=== PATIENT | female | born 1980 | race American Indian/Alaskan Native ===

== ENCOUNTER 2016-08-22 22:45 | Inpatient (IN) | payer SELFPAY ==
[2016-08-23] MEDS ORDERED: NORCO 5/325 ONE (03:04)
[2016-08-23] MEDS ORDERED: NORCO 5/325 PO ONE (03:13)
[2016-08-23] MEDS ORDERED: CLEOCIN 600 MG/50 mL 600 MG/50 ML BAG IV ONE (04:51)
--- NOTE | 2016-08-23 05:04 | Emergency Department Report ---
ED Extremity Problem HPI - General Chief complaint: Extremity Problem,Nontraumatic Stated complaint: R THUMB SWOLLEN Source: patient Mode of arrival: Ambulatory Limitations: No Limitations - History of Present Illness Initial comments: 36-year-old female comes in today for complaint of nontraumatic swelling and warmth to her right thumb. She reports that this is been going on for 1 week. 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 She denies any fever or chills. No nausea no vomiting no diarrhea. Just reports that her right thumb is very swollen and very tender to touch. Says it feels like it throbs at times. It is some skin changes at the tip of the right thumb. MD Complaint: extremity pain, extremity swelling -: week(s) (1) Location: right, upper extremity (thumb) History of Same: No Severity scale (0 -10): 5 - Related Data Previous Rx's Medication Instructions Recorded Last Taken Type Hydrocortisone 2.5% [Hytone 2.5% 1 applicatio TP BID #15 gram 07/15/13 Unknown Rx CREAM] Hermelinda AC/Grape/Hyaluronic Acid 1 applic TP TID #100 gram 07/15/13 Unknown Rx [Atopiclair Cream] Ondansetron [Zofran] 4 mg PO Q6HR PRN #14 tablet 06/27/16 Unknown Rx Vit-Fe Fumar-FA [ 1 each PO QDAY #30 tablet 06/27/16 Unknown Rx Vitamin] metroNIDAZOLE [Flagyl] 500 mg PO Q12HR #14 tab 06/27/16 Unknown Rx Allergies Allergy/AdvReac Type Severity Reaction Status Date / Time No Known Allergies Allergy Verified 08/23/16 03:17 ED Review of Systems ROS: Stated complaint: R THUMB SWOLLEN Other details as noted in HPI Constitutional: denies: chills, fever Musculoskeletal: joint swelling, arthralgia Skin: change in color. denies: rash, lesions ED Past Medical Hx - Past Medical History Previous Medical History?: No - Surgical History Past Surgical History?: No - Social History Smoking Status: Never Smoker Substance Use Type: None - Medications Home Medications: Home Medications Medication Instructions Recorded Confirmed Last Taken Type Hydrocortisone 2.5% [Hytone 2.5% 1 applicatio TP BID #15 gram 07/15/13 Unknown Rx CREAM] Hermelinda AC/Grape/Hyaluronic Acid 1 applic TP TID #100 gram 07/15/13 Unknown Rx [Atopiclair Cream] Ondansetron [Zofran] 4 mg PO Q6HR PRN #14 tablet 06/27/16 Unknown Rx Vit-Fe Fumar-FA [ 1 each PO QDAY #30 tablet 06/27/16 Unknown Rx Vitamin] metroNIDAZOLE [Flagyl] 500 mg PO Q12HR #14 tab 06/27/16 Unknown Rx ED Physical Exam - General Limitations: No Limitations General appearance: alert, in no apparent distress - Neurological Exam Neurological exam: Present: alert, altered - Skin Skin exam: Present: warm, dry, intact, erythema, ecchymosis ED Course Vital Signs 08/22/16 23:20 Temperature 98.6 F Pulse Rate 84 Respiratory 20 Rate Blood Pressure 131/88 O2 Sat by Pulse 100 Oximetry - I & D Right Dorsal Finger Type of Procedure: Simple Site: rt thumb Blade Size: 11 I & D Procedure: betadine prep (right thumb), sterile drapes applied, sterile dressing applied Progress: Patient tolerated procedure as well as possible. ED Medical Decision Making - Lab Data Result diagrams: 08/23/16 05:17 08/23/16 05:17 - Radiology Data Radiology results: image reviewed FINDINGS: Fracture (s) and/or Dislocation(s): None . Alignment: Normal. Joint space(s): Normal . Soft tissues: Normal . Bone mineralization: Normal . Foreign bodies: None . IMPRESSION: Normal Examination Transcribed By: [facility] Dictated By: CEM BOYER MD Electronically Authenticated By: CEM BOYER MD Signed Date/Time: 08/23/16 0631 - Medical Decision Making Patient has been evaluated by this provider in fast track. Made an attempt to I &D her paronychia. We will admit patient for cellulitis. CBC BMP ESR CRP CK was ordered on this patient as well as clindamycin 600 mg IV. Discussed and had Dr. Sifuentes international units weight the patient as well. Consult made to Dr. Vidal orthopedics doctor or agrees with plan he will evaluate patient as an inpatient. Critical care attestation.: If time is entered above; I have spent that time in minutes in the direct care of this critically ill patient, excluding procedure time. ED Disposition Clinical Impression: Cellulitis and abscess of finger, unspecified Disposition: OP ADMITTED IP TO THIS HOSP Is pt being admited?: Yes Does the pt Need Aspirin: No Condition: Stable Referrals: PRIMARY CARE, [Primary Care Provider] - 3-5 Days
--- NOTE | 2016-08-23 05:34 | XRay Report ---
FINAL REPORT PROCEDURE: XR FINGER(S) 2 RT TECHNIQUE: RIGHT thumb finger radiographs, including AP, lateral, and oblique views. HISTORY: swollen right thumb rule out infection to the bone COMPARISON: No prior studies are available for comparison. FINDINGS: Fracture (s) and/or Dislocation(s): None . Alignment: Normal. Joint space(s): Normal . Soft tissues: Normal . Bone mineralization: Normal . Foreign bodies: None . IMPRESSION: Normal Examination
[2016-08-23] MEDS ORDERED: NACL 0.9% 1000 ML 1,000 ML ONE (05:43)
[2016-08-23] MEDS ORDERED: NACL 0.9% 1000 ML 1,000 ML IV ONE (05:43)
[2016-08-23] MEDS ORDERED: MORPHINE IV ONE (05:44)
[2016-08-23] MEDS ORDERED: ZOFRAN ONE (05:46)
[2016-08-23] MEDS ORDERED: ZOFRAN IV NR (06:00)
--- NOTE | 2016-08-23 06:10 | Admit Criteria Form ---
Admission Criteria Documentation: CELLULITIS Clinical Indications for Admission to Inpatient Care (Place 'X' for any and all applicable criteria): Admission is indicated for ANY ONE of the following(1)(2)(3)(4)(5): [ ]I. Limb-threatening infection [ ]II. High-risk comorbid condition as indicated by ANY ONE of the following: [ ]a) Uncontrolled diabetes (eg, HbA1c greater than 10% (0.1)) [ ]b) Cirrhosis [ ]c) Neutropenia [ ]d) Asplenia [ ]e) Immunosuppression [ ]f) Symptomatic heart failure [ ]III. Failure of outpatient therapy as indicated by ALL of the following: [ ]a) Progression or no improvement after adequate trial (minimum of 48 hours, with longer period for stable lower extremity infection) [ ]b) Adequate antibiotic regimen as indicated by use of ANY ONE of the following: [ ]i) First-generation cephalosporin (e.g., cephalexin) [ ]ii) Antistaphylococcal penicillin (e.g., dicloxacillin) [ ]iii) Penicillin-allergic patient regimen (clindamycin, extended-spectrum fluoroquinolone, or doxycycline) [ ]iv) Resistant organism (eg, methicillin-resistant Staphylococcus aureus) regimen (6) [ ]c) Outpatient intravenous therapy regimen is not appropriate due to ANY ONE of the following. (7)(8)(9)(10): [ ]i) It was tried and was not successful (eg, progression of infection). [ ]ii) It is not available or cannot be arranged in a clinically appropriate time frame (e.g., the next day). [ ]iii) Clinical presentation (eg, acuity of infection, rapidity of progression, confirmed or suspected bacteremia) is judged to require ALL of the following: [ ]1) Immediate initiation of intravenous therapy ( eg, cannot wait for next day) [ ]2) Intensity of patient monitoring and observation (eg, vital sign measurement, checks for infection progression) that cannot be provided at other than inpatient level of care [ ]IV. Mental status changes [ ]V. Bacteremia [ ]. Hemodynamic instability [ ]VII. Suspected necrotizing soft tissue infection (e.g., gas in tissue)(11)( 12) [ ]VIII. Orbital infection (13)(14) [ ]IX. Associated surgical procedure (e.g., abscess drainage, debridement) not amenable to outpatient, emergency department, or observation care [ ]X. Cutaneous gangrene [ ]XI. High fever (temperature greater than 39.5 degrees C (103.1 degrees F) (oral)) not responsive to outpatient, emergency department, or observation care therapy [x]XIII. Inpatient admission required rather than observation care (Also use Cellulitis: Observation Care as appropriate) because of ANY ONE of the following : [ ]a) Periorbital or perineal infection that is severe or worsening [ ]b) Severe pain requiring acute inpatient management [ ]c) IV fluid to replace significant ongoing (e.g., for over 24 hours) losses (greater than 3L/m2 per day) [ ]d) Compartment syndrome monitoring (17) [ ]e) Strict or protective (eg, laminar flow) isolation [ ]f) Urgent debridement or skin grafting [ ]g) Bone or joint debridement [ ]h) Immediate inpatient surgery [x ]i) Other condition, treatment or monitoring requiring inpatient admission Extended stay beyond goal length of stay may be needed for (1)(18): [ ]a) Necrotizing soft tissue infection or fasciitis [ ]b) Gram-negative infection [ ]c) Methicillin-resistant Staphylococcal aureus (MRSA) infection [ ]d) Peripheral venous insufficiency with cellulitis [ ]e) Extensive edema [ ]f) Sepsis or continued Hemodynamic instability [ ]g) Continued high fever or mental status change [ ]h) Bacteremia [ ]i) Active serious comorbid conditions ( eg, heart failure, renal insufficiency) The original [facility] content created by [employer] has been revised. The portions of the content which have been revised are identified through the use of italic text or in bold, and [facility] has neither reviewed nor approved the modified material. All other unmodified content is copyright [facility] [employer] Please see references footnoted in the original [facility] [employer] edition 2016 Admission Criteria Met: Yes
[2016-08-23 06:23] LABS: Anion Gap 18 mmol/L; BUN/Creatinine Ratio 11.66; Blood Urea Nitrogen 7 mg/dL (7-17); Calcium 8.9 mg/dL (8.4-10.2); Carbon Dioxide 24 mmol/L (22-30); Chloride 99.7 mmol/L (98-107); Creatine Kinase 56 units/L (30-135); Glucose 84 mg/dL (65-100); Potassium 3.8 mmol/L (3.6-5.0); Sodium 138 mmol/L (137-145)
[2016-08-23 06:28] LABS: Hemoglobin 11.5 gm/dl (10.1-14.3); Mean Corpuscular HGB Conc 32 % (30-34); Mean Corpuscular Hemoglobin 27 pg (28-32); Mean Corpuscular Volume 83 fl (79-97); Platelet Count 233 K/mm3 (140-440); Red Blood Count 4.33 M/mm3 (3.65-5.03); Red Cell Distribution Width 15.1 % (13.2-15.2); White Blood Count 7.5 K/mm3 (4.5-11.0)
[2016-08-23 06:59] LABS: Erythrocyte Sedimentation Rate 24 mm/Hr (0-20)
--- NOTE | 2016-08-23 10:49 | History and Physical Report ---
History of Present Illness Date of examination: 08/23/16 Date of admission: 08/23/16 06:46 History of present illness: 36-year-old female comes in today for complaint of nontraumatic swelling and warmth to her right thumb. She reports that this is been going on for 1 week. 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 She denies any fever or chills. No nausea no vomiting no diarrhea. Just reports that her right thumb is very swollen and very tender to touch. Says it feels like it throbs at times. It is some skin changes at the tip of the right thumb. Medications and Allergies Allergies Allergy/AdvReac Type Severity Reaction Status Date / Time No Known Allergies Allergy Verified 08/23/16 03:17 Home Medications Medication Instructions Recorded Confirmed Last Taken Type Hydrocortisone 2.5% [Hytone 2.5% 1 applicatio TP BID #15 gram 07/15/13 Unknown Rx CREAM] Hermelinda AC/Grape/Hyaluronic Acid 1 applic TP TID #100 gram 07/15/13 Unknown Rx [Atopiclair Cream] Ondansetron [Zofran] 4 mg PO Q6HR PRN #14 tablet 06/27/16 Unknown Rx Vit-Fe Fumar-FA [ 1 each PO QDAY #30 tablet 06/27/16 Unknown Rx Vitamin] metroNIDAZOLE [Flagyl] 500 mg PO Q12HR #14 tab 06/27/16 Unknown Rx Active Meds: Active Medications Sodium Chloride (Nacl 0.9% 1000 Ml) 1,000 mls @ 125 mls/hr IV ONCE ONE Stop: 08/23/16 13:42 Last Admin: 08/23/16 06:00 Dose: 125 mls/hr Review of Systems Integumentary: redness, change in hair/nails Exam - Constitutional Vitals: Temp Pulse Resp BP Pulse Ox 98.6 F 80 18 126/81 100 08/23/16 08:36 08/23/16 08:36 08/23/16 08:37 08/23/16 08:36 08/23/16 08:37 General appearance: Present: mild distress - EENT Eyes: Present: PERRL, EOM intact ENT: hearing intact, clear oral mucosa - Neck Neck: Present: supple, normal ROM - Respiratory Respiratory effort: normal Respiratory: bilateral: CTA - Cardiovascular Rhythm: regular Heart Sounds: Present: S1 & S2 - Extremities Extremity abnormal: other (right thumb swollen erythematous) - Abdominal General gastrointestinal: Present: soft, non-tender, non-distended, normal bowel sounds - Psychiatric Psychiatric: appropriate mood/affect, intact judgment & insight - Neurologic Neurologic: CNII-XII intact, moves all extremities Results - Labs CBC & Chem 7: 08/23/16 05:17 08/23/16 05:17 Labs: Laboratory Last Values WBC 7.5 K/mm3 (4.5-11.0) 08/23/16 05:17 RBC 4.33 M/mm3 (3.65-5.03) 08/23/16 05:17 Hgb 11.5 gm/dl (10.1-14.3) 08/23/16 05:17 Hct 36.0 % (30.3-42.9) 08/23/16 05:17 MCV 83 fl (79-97) 08/23/16 05:17 MCH 27 pg (28-32) L 08/23/16 05:17 MCHC 32 % (30-34) 08/23/16 05:17 RDW 15.1 % (13.2-15.2) 08/23/16 05:17 Plt Count 233 K/mm3 (140-440) 08/23/16 05:17 ESR 24 mm/Hr (0-20) 08/23/16 05:17 Sodium 138 mmol/L (137-145) 08/23/16 05:17 Potassium 3.8 mmol/L (3.6-5.0) 08/23/16 05:17 Chloride 99.7 mmol/L (98-107) 08/23/16 05:17 Carbon Dioxide 24 mmol/L (22-30) 08/23/16 05:17 Anion Gap 18 mmol/L 08/23/16 05:17 BUN 7 mg/dL (7-17) 08/23/16 05:17 Creatinine 0.6 mg/dL (0.7-1.2) L 08/23/16 05:17 Estimated GFR > 60 ml/min 08/23/16 05:17 BUN/Creatinine Ratio 11.66 % 08/23/16 05:17 Glucose 84 mg/dL (65-100) 08/23/16 05:17 Calcium 8.9 mg/dL (8.4-10.2) 08/23/16 05:17 Total Creatine Kinase 56 units/L (30-135) 08/23/16 05:17 C-Reactive Protein 3.20 mg/dL (0.00-1.30) H 08/23/16 05:17 Assessment and Plan - Patient Problems (1) Cellulitis and abscess of finger, unspecified Current Visit: Yes Status: Acute Plan to address problem: Patient will be started on IV antibiotics. We will get wound nurse involved. Continue appropriate wound care. Continue to follow clinically
[2016-08-23] MEDS: ROCEPHIN/NS 1 GM/50 ML 1 GM/50 ML BAG IV SCH (11:11)
[2016-08-23] MEDS: MORPHINE IV PRN ×3 (11:11→23:08)
[2016-08-24] MEDS: MORPHINE IV PRN ×2 (04:54→09:24)
[2016-08-24 06:27] LABS: Basophils % (Auto) 0.5 % (0.0-1.8); Eosinophils % (Auto) 1.3 % (0.0-4.3); Hematocrit 32.6 % (30.3-42.9); Hemoglobin 10.5 gm/dl (10.1-14.3); Mean Corpuscular HGB Conc 32 % (30-34); Mean Corpuscular Hemoglobin 27 pg (28-32); Mean Corpuscular Volume 82 fl (79-97); Platelet Count 202 K/mm3 (140-440); Red Blood Count 3.98 M/mm3 (3.65-5.03); Red Cell Distribution Width 15.3 % (13.2-15.2); White Blood Count 3.9 K/mm3 (4.5-11.0)
--- NOTE | 2016-08-24 06:28 | Progress Note ---
Assessment and Plan - Patient Problems (1) Cellulitis and abscess of finger, unspecified Current Visit: Yes Status: Acute Plan to address problem: Patient was started on IV antibiotics. We will get wound nurse involved. Continue appropriate wound care. Continue to follow clinically History Interval history: Patient states that her thumb feels better today. Admits to some drainage from the thumb. The fever overnight Hospitalist Physical - Constitutional Vitals: Temp Pulse Resp BP Pulse Ox 97.6 F 76 20 120/70 100 08/24/16 00:00 08/24/16 00:00 08/24/16 00:00 08/24/16 00:00 08/24/16 00:00 General appearance: Present: no acute distress - EENT Eyes: Present: PERRL, EOM intact ENT: hearing intact, clear oral mucosa - Neck Neck: Present: supple, normal ROM - Respiratory Respiratory effort: normal Respiratory: bilateral: CTA - Cardiovascular Rhythm: regular Heart Sounds: Present: S1 & S2 - Abdominal General gastrointestinal: soft, non-tender, non-distended, normal bowel sounds - Psychiatric Psychiatric: appropriate mood/affect, intact judgment & insight - Neurologic Neurologic: CNII-XII intact, moves all extremities Results - Labs CBC & Chem 7: 08/24/16 05:52 08/24/16 05:52 Labs: Laboratory Last Values WBC 3.9 K/mm3 (4.5-11.0) L 08/24/16 05:52 RBC 3.98 M/mm3 (3.65-5.03) 08/24/16 05:52 Hgb 10.5 gm/dl (10.1-14.3) 08/24/16 05:52 Hct 32.6 % (30.3-42.9) 08/24/16 05:52 MCV 82 fl (79-97) 08/24/16 05:52 MCH 27 pg (28-32) L 08/24/16 05:52 MCHC 32 % (30-34) 08/24/16 05:52 RDW 15.3 % (13.2-15.2) H 08/24/16 05:52 Plt Count 202 K/mm3 (140-440) 08/24/16 05:52 Lymph % (Auto) 50.8 % (13.4-35.0) H 08/24/16 05:52 [place] % (Auto) 10.8 % (0.0-7.3) H 08/24/16 05:52 Eos % (Auto) 1.3 % (0.0-4.3) 08/24/16 05:52 Baso % (Auto) 0.5 % (0.0-1.8) 08/24/16 05:52 Lymph # 2.0 K/mm3 (1.2-5.4) 08/24/16 05:52 [place] # 0.4 K/mm3 (0.0-0.8) 08/24/16 05:52 Eos # 0.1 K/mm3 (0.0-0.4) 08/24/16 05:52 Baso # 0.0 K/mm3 (0.0-0.1) 08/24/16 05:52 Seg Neutrophils % 36.6 % (40.0-70.0) L 08/24/16 05:52 Seg Neutrophils # 1.4 K/mm3 (1.8-7.7) L 08/24/16 05:52 ESR 24 mm/Hr (0-20) 08/23/16 05:17 Sodium 138 mmol/L (137-145) 08/23/16 05:17 Potassium 3.8 mmol/L (3.6-5.0) 08/23/16 05:17 Chloride 99.7 mmol/L (98-107) 08/23/16 05:17 Carbon Dioxide 24 mmol/L (22-30) 08/23/16 05:17 Anion Gap 18 mmol/L 08/23/16 05:17 BUN 7 mg/dL (7-17) 08/23/16 05:17 Creatinine 0.6 mg/dL (0.7-1.2) L 08/23/16 05:17 Estimated GFR > 60 ml/min 08/23/16 05:17 BUN/Creatinine Ratio 11.66 % 08/23/16 05:17 Glucose 84 mg/dL (65-100) 08/23/16 05:17 Calcium 8.9 mg/dL (8.4-10.2) 08/23/16 05:17 Total Creatine Kinase 56 units/L (30-135) 08/23/16 05:17 C-Reactive Protein 3.20 mg/dL (0.00-1.30) H 08/23/16 05:17
[2016-08-24 06:53] LABS: Alanine Aminotransferase 12 units/L (7-56); Albumin 3.5 g/dL (3.9-5); Albumin/Globulin Ratio 1.3 %; Alkaline Phosphatase 54 units/L (35-129); Anion Gap 17 mmol/L; BUN/Creatinine Ratio 6.66; Bilirubin,Total < 0.2 mg/dL (0.1-1.2); Blood Urea Nitrogen 4 mg/dL (7-17); Calcium 8.4 mg/dL (8.4-10.2); Carbon Dioxide 25 mmol/L (22-30); Chloride 104.8 mmol/L (98-107); Glucose 87 mg/dL (65-100); Potassium 3.7 mmol/L (3.6-5.0); Sodium 143 mmol/L (137-145); Total Protein 6.3 g/dL (6.3-8.2)
[2016-08-24 07:50] VITALS: BP 140/91
[2016-08-24] MEDS: ROCEPHIN/NS 1 GM/50 ML 1 GM/50 ML BAG IV SCH (09:13)
--- NOTE | 2016-08-24 14:40 | Discharge Summary ---
Providers - Providers Date of Admission: 08/23/16 06:46 Date of discharge: 08/24/16 Attending physician: BELINDA HOSKINS Primary care physician: [employer] Hospitalization Condition: Stable Hospital course: 36-year-old female comes in today for complaint of nontraumatic swelling and warmth to her right thumb. She reports that this is been going on for 1 week. 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 She denies any fever or chills. No nausea no vomiting no diarrhea. Just reports that her right thumb is very swollen and very tender to touch. Says it feels like it throbs at times. It is some skin changes at the tip of the right thumb. Patient was admitted with Thumb cellulitis and started on IV abx. She improved and remained afebrile with normal WBC. Patient will be discharged home with po antibiotics and should follow up with her PCP in 1 week Disposition: DISCHARGED TO HOME OR SELFCARE - Discharge Diagnoses (1) Cellulitis and abscess of finger, unspecified Status: Acute Core Measure Documentation - Palliative Care Palliative Care/ Comfort Measures: Not Applicable - Core Measures Any of the following diagnoses?: none Exam - Constitutional Vitals: Temp Pulse Resp BP Pulse Ox 98.2 F 62 18 140/91 99 08/24/16 07:50 08/24/16 07:50 08/24/16 07:50 08/24/16 07:50 08/24/16 07:50 General appearance: Present: no acute distress - EENT Eyes: Present: PERRL, EOM intact ENT: hearing intact, clear oral mucosa - Neck Neck: Present: supple, normal ROM - Respiratory Respiratory effort: normal Respiratory: bilateral: CTA - Cardiovascular Rhythm: regular Heart Sounds: Present: S1 & S2 - Abdominal General gastrointestinal: Present: soft, non-tender, non-distended, normal bowel sounds - Musculoskeletal Musculoskeletal: strength equal bilaterally, other (Right thumb with decreased swelling) - Psychiatric Psychiatric: appropriate mood/affect, intact judgment & insight - Neurologic Neurologic: CNII-XII intact, moves all extremities Plan Activity: advance as tolerated Weight Bearing Status: Weight Bear as Tolerated Diet: low fat, low cholesterol, low salt Follow up with: JOE MULLER MD [Primary Care Provider] - 3-5 Days BELINDA HOSKINS MD [Staff Physician] - 7 Days Prescriptions: Levofloxacin [Levaquin TAB] 500 mg PO QDAY #10 tablet Oxycodone HCl/Acetaminophen [Percocet 7.5/325 mg] 1 each PO Q6HR PRN #30 tablet PRN Reason: Pain Vit-Fe Fumar-FA [ Vitamin] 1 each PO QDAY #30 tablet
== END 2016-08-24 15:59 | disposition home or self-care (01) | DRG 603 ==
LOC: ED 22:45 → 3A 08-23 06:46
PROVIDERS: ADMIT Internal Medicine; ATTEND Internal Medicine
DX: L03.011 Cellulitis of right finger (principal)
CPT/HCPCS: 36415; 80048; 80053; 82550; 85025; 85027; 85652; 86140; 96365; 96375; J0696; J2270; J2405; J7030

== ENCOUNTER 2016-10-26 17:36 | Emergency (ER) | payer SELFPAY | END 2016-10-26 19:00 | disposition left against medical advice (07) | LOC: ED 17:36 | DX: O20.9 Hemorrhage in early pregnancy, unspecified (principal); Z3A.01 Less than 8 weeks gestation of pregnancy; Z53.21 Procedure and treatment not carried out due to patient leaving prior to being seen by health care provider ==

== ENCOUNTER 2018-01-04 23:58 | Emergency (ER) | payer MEDICAID ==
[2018-01-05] MEDS ORDERED: ASPIRIN PO ONE (00:16)
[2018-01-05 00:35] LABS: Basophils % (Auto) 0.6 % (0.0-1.8); Eosinophils % (Auto) 0.3 % (0.0-4.3); Hematocrit 34.2 % (30.3-42.9); Hemoglobin 11.2 gm/dl (10.1-14.3); Lymphocytes # (Auto) 1.2 K/mm3 (1.2-5.4); Lymphocytes % (Auto) 23.2 % (13.4-35.0); Mean Corpuscular HGB Conc 33 % (30-34); Mean Corpuscular Hemoglobin 26 pg (28-32); Mean Corpuscular Volume 81 fl (79-97); Monocytes # (Auto) 0.5 K/mm3 (0.0-0.8); Monocytes % (Auto) 10.4 % (0.0-7.3); Platelet Count 224 K/mm3 (140-440); Red Blood Count 4.25 M/mm3 (3.65-5.03); Red Cell Distribution Width 15.9 % (13.2-15.2)
[2018-01-05 00:48] LABS: BUN/Creatinine Ratio 10; Blood Urea Nitrogen 7 mg/dL (7-17); Calcium 8.7 mg/dL (8.4-10.2); Hemolysis Index 0
--- NOTE | 2018-01-05 01:09 | Emergency Department Report ---
ED Chest Pain HPI - General Chief Complaint: Chest Pain Stated Complaint: CHEST PAIN Time Seen by Provider: 01/05/18 00:50 Source: patient Mode of arrival: Ambulatory Limitations: No Limitations - History of Present Illness Initial Comments: 37 year old female with no significant past medical history presents to the hospital complaining of left-sided chest pain, palpitations, shortness of breath that started 1 hour prior to arrival. Pain described as a tightness initially rated 8/10 intensity but has since improved. Patient denies nausea, vomiting, or diaphoresis. Patient is not on control, denies recent out of state travel, history of PEs and DVT, smoking history, or drug abuse specifically cocaine. Her mother has "heart disease" but she denies known history of her having an MN, stent placement, bypass surgery. PMD: none - Related Data Previous Rx's Medication Instructions Recorded Last Taken Type Hydrocortisone 2.5% [Hytone 2.5% 1 applicatio TP BID #15 gram 07/15/13 Unknown Rx CREAM] Hermelinda AC/Grape/Hyaluronic Acid 1 applic TP TID #100 gram 07/15/13 Unknown Rx [Atopiclair Cream] Ondansetron [Zofran] 4 mg PO Q6HR PRN #14 tablet 06/27/16 Unknown Rx metroNIDAZOLE [Flagyl] 500 mg PO Q12HR #14 tab 06/27/16 Unknown Rx Levofloxacin [Levaquin TAB] 500 mg PO QDAY #10 tablet 08/24/16 Unknown Rx Oxycodone HCl/Acetaminophen 1 each PO Q6HR PRN #30 tablet 08/24/16 Unknown Rx [Percocet 7.5/325 mg] Vit-Fe Fumar-FA [ 1 each PO QDAY #30 tablet 08/24/16 Unknown Rx Vitamin] Allergies Allergy/AdvReac Type Severity Reaction Status Date / Time No Known Allergies Allergy Verified 08/23/16 03:17 Heart Score - HEART Score History: Slightly suspicious EKG: Normal Age: < 45 Risk factors: No known risk factors Troponin: < normal limit HEART Score: 0 ED Review of Systems ROS: Stated complaint: CHEST PAIN Other details as noted in HPI Comment: All other systems reviewed and negative ED Past Medical Hx - Past Medical History Hx Congestive Heart Failure: No Hx Diabetes: No Hx Asthma: No Hx COPD: No - Surgical History Past Surgical History?: No - Social History Smoking Status: Never Smoker Substance Use Type: None - Medications Home Medications: Home Medications Medication Instructions Recorded Confirmed Last Taken Type Hydrocortisone 2.5% [Hytone 2.5% 1 applicatio TP BID #15 gram 07/15/13 Unknown Rx CREAM] Hermelinda AC/Grape/Hyaluronic Acid 1 applic TP TID #100 gram 07/15/13 Unknown Rx [Atopiclair Cream] Ondansetron [Zofran] 4 mg PO Q6HR PRN #14 tablet 06/27/16 Unknown Rx metroNIDAZOLE [Flagyl] 500 mg PO Q12HR #14 tab 06/27/16 Unknown Rx Levofloxacin [Levaquin TAB] 500 mg PO QDAY #10 tablet 08/24/16 Unknown Rx Oxycodone HCl/Acetaminophen 1 each PO Q6HR PRN #30 tablet 08/24/16 Unknown Rx [Percocet 7.5/325 mg] Vit-Fe Fumar-FA [ 1 each PO QDAY #30 tablet 08/24/16 Unknown Rx Vitamin] ED Physical Exam - General Limitations: No Limitations - Other Other exam information: General: No limitations, patient is alert in no acute distress Head exam: Atraumatic, normocephalic Eyes exam: Normal appearance, pupils equal reactive to light, extraocular movements intact ENT: Moist mucous membrane, normal oropharynx Neck exam: Normal inspection, full range of motion, no meningismus nontender Respiratory exam: Clear to auscultation bilateral, no wheezes, rales, crackles. Chest wall nontender Cardiovascular: Normal rate and rhythm Abdomen: Soft, nondistended, and nontender, with normal bowel sounds, no rebound, or guarding Extremity: Full range of motion normal inspection no deformity, no calf tenderness or edema Back: Normal Inspection, full range of motion, no tenderness Neurologic: Alert, oriented x3, cranial nerves intact, no motor or sensory deficit Psychiatric: normal affect, normal mood Skin: Warm, dry, intact ED Course Vital Signs 01/05/18 01/05/18 00:12 01:05 Temperature 98.8 F Pulse Rate 105 H 83 Respiratory 20 19 Rate Blood Pressure 141/86 116/72 O2 Sat by Pulse 100 99 Oximetry - Reevaluation(s) Reevaluation #1: 01/05/18 01:08 pt declined offer for pain medication ED Medical Decision Making - Lab Data Result diagrams: 01/05/18 00:20 06/24/18 00:20 Lab Results 01/05/18 01/05/18 01/05/18 Range/Units 00:20 00:20 00:20 WBC 5.2 (4.5-11.0) K/mm3 RBC 4.25 (3.65-5.03) M/mm3 Hgb 11.2 (10.1-14.3) gm/dl Hct 34.2 (30.3-42.9) % MCV 81 (79-97) fl MCH 26 L (28-32) pg MCHC 33 (30-34) % RDW 15.9 H (13.2-15.2) % Plt Count 224 (140-440) K/mm3 Lymph % (Auto) 23.2 (13.4-35.0) % [place] % (Auto) 10.4 H (0.0-7.3) % Eos % (Auto) 0.3 (0.0-4.3) % Baso % (Auto) 0.6 (0.0-1.8) % Lymph # 1.2 (1.2-5.4) K/mm3 [place] # 0.5 (0.0-0.8) K/mm3 Eos # 0.0 (0.0-0.4) K/mm3 Baso # 0.0 (0.0-0.1) K/mm3 Seg Neutrophils % 65.5 (40.0-70.0) % Seg Neutrophils # 3.4 (1.8-7.7) K/mm3 D-Dimer (0-234) ng/mlDDU Sodium 138 (137-145) mmol/L Potassium 4.0 (3.6-5.0) mmol/L Chloride 99.5 (98-107) mmol/L Carbon Dioxide 26 (22-30) mmol/L Anion Gap 17 mmol/L BUN 7 (7-17) mg/dL Creatinine 0.7 (0.7-1.2) mg/dL Estimated GFR > 60 ml/min BUN/Creatinine Ratio 10 % Glucose 108 H (65-100) mg/dL Calcium 8.7 (8.4-10.2) mg/dL Troponin T < 0.010 (0.00-0.029) ng/mL TSH (0.270-4.200) mlU/mL Free T4 (0.76-1.46) ng/dL HCG, Qual Negative (Negative) 01/05/18 01/05/18 01/05/18 Range/Units 01:13 01:13 03:28 WBC (4.5-11.0) K/mm3 RBC (3.65-5.03) M/mm3 Hgb (10.1-14.3) gm/dl Hct (30.3-42.9) % MCV (79-97) fl MCH (28-32) pg MCHC (30-34) % RDW (13.2-15.2) % Plt Count (140-440) K/mm3 Lymph % (Auto) (13.4-35.0) % [place] % (Auto) (0.0-7.3) % Eos % (Auto) (0.0-4.3) % Baso % (Auto) (0.0-1.8) % Lymph # (1.2-5.4) K/mm3 [place] # (0.0-0.8) K/mm3 Eos # (0.0-0.4) K/mm3 Baso # (0.0-0.1) K/mm3 Seg Neutrophils % (40.0-70.0) % Seg Neutrophils # (1.8-7.7) K/mm3 D-Dimer 256.56 H (0-234) ng/mlDDU Sodium (137-145) mmol/L Potassium (3.6-5.0) mmol/L Chloride (98-107) mmol/L Carbon Dioxide (22-30) mmol/L Anion Gap mmol/L BUN (7-17) mg/dL Creatinine (0.7-1.2) mg/dL Estimated GFR ml/min BUN/Creatinine Ratio % Glucose (65-100) mg/dL Calcium (8.4-10.2) mg/dL Troponin T < 0.010 (0.00-0.029) ng/mL TSH 0.826 (0.270-4.200) mlU/mL Free T4 1.03 (0.76-1.46) ng/dL HCG, Qual (Negative) - EKG Data -: EKG Interpreted by Nv EKG shows normal: sinus rhythm, axis (qrs 70), QRS complexes (qrsd 75), ST-T waves (no stemi/t inv) Rate: tachycardia (120) - EKG Data When compared to previous EKG there are: no significant change (07/15/13) - Radiology Data Radiology results: report reviewed FINAL REPORT EXAM: XR CHEST ROUTINE 2V HISTORY: left cp, palpitations TECHNIQUE: PA and lateral views of the chest were submitted. FINDINGS: The heart size and mediastinum appear normal. The lungs are clear. Pleural fluid is not seen. There is no evidence of congestion. The skeletal structures appear normal. IMPRESSION: Normal chest. EXAM: CT ANGIO CHEST HISTORY: mild ddimer elevation, cp , palp TECHNIQUE: A CT angiogram was obtained of the thorax following the intravenous injection of 100 cc of Omnipaque 350. Rotational, sagittal, and coronal MIP reconstructions were reviewed. FINDINGS: There is no evidence of pulmonary embolus, vascular congestion, or aortic dissection. The thoracic aorta is normal in caliber. The heart size is normal. Adenopathy is not identified. The lungs are clear. Pleural fluid is not seen. In the upper abdomen the adrenal glands appear normal. The skeletal structures are well-maintained. At the thoracic inlet the thyroid gland appears normal. IMPRESSION: No evidence of pulmonary embolus, vascular congestion, or aortic dissection. No acute process in the chest - Medical Decision Making Pain improved in ED without any acute intervention or medication. EKG unremarkable For Cardiac. Patient Had a Mildly Elevated D-Dimer with No Risk Factors for PE/DVT. CT Angiogram Negative for Pulmonary Embolism. Troponin Negative 2. Outpatient cardiac cardiology and PMD evaluation be recommended. - Differential Diagnosis anxiety, MN, unstable angina, PE, thyroid disease, anemia Critical Care Time: No Critical care attestation.: If time is entered above; I have spent that time in minutes in the direct care of this critically ill patient, excluding procedure time. ED Disposition Clinical Impression: Atypical chest pain, Heart palpitations Disposition: DC-01 TO HOME OR SELFCARE Is pt being admited?: No Does the pt Need Aspirin: No Condition: Stable Instructions: Chest Pain (ED), Palpitations (ED) Additional Instructions: It is very important and that you follow with a primary care doctor/clinic and a lens coater for further monitoring of your heart rate and further evaluation. Please return if symptoms worsen as indicated by your discharge instructions Referrals: PRIMARY CARE, [Primary Care Provider] - 3-5 Days MAYUR MAE MD [Staff Physician] - 3-5 Days (cardiology ) [facility] [Provider Group] - 3-5 Days (primary care clinic ) Time of Disposition: 04:18
--- NOTE | 2018-01-05 01:44 | XRay Report ---
FINAL REPORT EXAM: XR CHEST ROUTINE 2V HISTORY: left cp, palpitations TECHNIQUE: PA and lateral views of the chest were submitted. FINDINGS: The heart size and mediastinum appear normal. The lungs are clear. Pleural fluid is not seen. There is no evidence of congestion. The skeletal structures appear normal. IMPRESSION: Normal chest.
[2018-01-05 01:56] LABS: Free T4 (Free Thyroxine) 1.03 ng/dL (0.76-1.46)
--- NOTE | 2018-01-05 03:28 | Cat Scan Report ---
FINAL REPORT EXAM: CT ANGIO CHEST HISTORY: mild ddimer elevation, cp , palp TECHNIQUE: A CT angiogram was obtained of the thorax following the intravenous injection of 100 cc of Omnipaque 350. Rotational, sagittal, and coronal MIP reconstructions were reviewed. FINDINGS: There is no evidence of pulmonary embolus, vascular congestion, or aortic dissection. The thoracic aorta is normal in caliber. The heart size is normal. Adenopathy is not identified. The lungs are clear. Pleural fluid is not seen. In the upper abdomen the adrenal glands appear normal. The skeletal structures are well-maintained. At the thoracic inlet the thyroid gland appears normal. IMPRESSION: No evidence of pulmonary embolus, vascular congestion, or aortic dissection. No acute process in the chest
[2018-01-05 04:39] VITALS: BP 101/58
== END 2018-01-05 04:38 | disposition home or self-care (01) ==
LOC: EEVIPCON 23:58 → ED 23:58
DX: R07.89 Other chest pain (principal); R00.2 Palpitations
CPT/HCPCS: 36415; 71046; 71275; 80048; 84439; 84443; 84484; 84703; 85025; 85379; 93005; 93010; 99285; Q9967

== ENCOUNTER 2018-04-11 10:26 | Emergency (ER) | payer MEDICAID ==
[2018-04-11 10:47] VITALS: BP 129/53
[2018-04-11 11:38] LABS: HCG Qualitative,Urine Negative (Negative)
[2018-04-11 11:40] LABS: Bilirubin,Urine NEG (Negative); Blood,Urine NEG (Negative); Color,Urine Yellow (Yellow); Mucus,Urine FEW /HPF; Protein,Urine <15 mg/dL mg/dL (Negative); Urobilinogen,Urine < 2.0 mg/dL (<2.0)
--- NOTE | 2018-04-11 12:24 | Emergency Department Report ---
ED Abdominal Pain HPI - General Chief Complaint: Abdominal Pain Stated Complaint: NAUSEA/STOMACH PAIN Time Seen by Provider: 04/11/18 12:07 Source: patient Mode of arrival: Ambulatory Limitations: No Limitations - History of Present Illness MD Complaint: abdominal pain, flank pain -: week(s) (2) Location: RLQ, R flank Radiation: RLQ, R flank Severity: moderate Quality: cramping, sharp Consistency: intermittent - Related Data Previous Rx's Medication Instructions Recorded Last Taken Type Hydrocortisone 2.5% [Hytone 2.5% 1 applicatio TP BID #15 gram 07/15/13 Unknown Rx CREAM] Hermelinda AC/Grape/Hyaluronic Acid 1 applic TP TID #100 gram 07/15/13 Unknown Rx [Atopiclair Cream] Ondansetron [Zofran] 4 mg PO Q6HR PRN #14 tablet 06/27/16 Unknown Rx metroNIDAZOLE [Flagyl] 500 mg PO Q12HR #14 tab 06/27/16 Unknown Rx Oxycodone HCl/Acetaminophen 1 each PO Q6HR PRN #30 tablet 08/24/16 Unknown Rx [Percocet 7.5/325 mg] Vit-Fe Fumar-FA [ 1 each PO QDAY #30 tablet 08/24/16 Unknown Rx Vitamin] levoFLOXacin [Levaquin TAB] 500 mg PO QDAY #10 tablet 08/24/16 Unknown Rx HYDROcodone/ACETAMINOPHEN [[place] 1 each PO Q6H PRN #10 tablet 04/11/18 Unknown Rx 5-325 Tablet] cephALEXin [Keflex] 500 mg PO Q6HR 7 Days #28 capsule 04/11/18 Unknown Rx Allergies Allergy/AdvReac Type Severity Reaction Status Date / Time No Known Allergies Allergy Verified 04/11/18 10:47 ED Review of Systems ROS: Stated complaint: NAUSEA/STOMACH PAIN Other details as noted in HPI Comment: All other systems reviewed and negative Constitutional: malaise. denies: fever Gastrointestinal: denies: nausea, vomiting ED Past Medical Hx - Past Medical History Previous Medical History?: No Hx Congestive Heart Failure: No Hx Diabetes: No Hx Asthma: No Hx COPD: No - Surgical History Past Surgical History?: No - Social History Smoking Status: Never Smoker Substance Use Type: None - Medications Home Medications: Home Medications Medication Instructions Recorded Confirmed Last Taken Type Hydrocortisone 2.5% [Hytone 2.5% 1 applicatio TP BID #15 gram 07/15/13 Unknown Rx CREAM] Hermelinda AC/Grape/Hyaluronic Acid 1 applic TP TID #100 gram 07/15/13 Unknown Rx [Atopiclair Cream] Ondansetron [Zofran] 4 mg PO Q6HR PRN #14 tablet 06/27/16 Unknown Rx metroNIDAZOLE [Flagyl] 500 mg PO Q12HR #14 tab 06/27/16 Unknown Rx Oxycodone HCl/Acetaminophen 1 each PO Q6HR PRN #30 tablet 08/24/16 Unknown Rx [Percocet 7.5/325 mg] Vit-Fe Fumar-FA [ 1 each PO QDAY #30 tablet 08/24/16 Unknown Rx Vitamin] levoFLOXacin [Levaquin TAB] 500 mg PO QDAY #10 tablet 08/24/16 Unknown Rx HYDROcodone/ACETAMINOPHEN [[place] 1 each PO Q6H PRN #10 tablet 04/11/18 Unknown Rx 5-325 Tablet] cephALEXin [Keflex] 500 mg PO Q6HR 7 Days #28 capsule 04/11/18 Unknown Rx ED Physical Exam - General Limitations: No Limitations General appearance: alert, in no apparent distress - Head Head exam: Present: atraumatic, normocephalic - Eye Eye exam: Present: normal appearance - ENT ENT exam: Present: mucous membranes moist - Neck Neck exam: Present: normal inspection. Absent: tenderness, meningismus - Respiratory Respiratory exam: Present: normal lung sounds bilaterally. Absent: respiratory distress, wheezes, rales, rhonchi - Cardiovascular Cardiovascular Exam: Present: regular rate, normal rhythm, normal heart sounds. Absent: systolic murmur, diastolic murmur, rubs, gallop - GI/Abdominal GI/Abdominal exam: Present: soft, normal bowel sounds. Absent: distended, tenderness, guarding, rebound - Extremities Exam Extremities exam: Present: normal inspection - Back Exam Back exam: Present: normal inspection. Absent: CVA tenderness (R), CVA tenderness (L) - Neurological Exam Neurological exam: Present: alert, oriented X3 - Psychiatric Psychiatric exam: Present: normal affect, normal mood - Skin Skin exam: Present: warm, dry, intact, normal color. Absent: rash ED Course Vital Signs 04/11/18 10:42 Temperature 98.1 F Pulse Rate 52 L Respiratory 16 Rate Blood Pressure 129/53 O2 Sat by Pulse 100 Oximetry ED Medical Decision Making - Medical Decision Making Ms. Martin presents with 2 weeks of right flank pain and left flank pain and right lower quadrant pain. Differential diagnosis includes pyelonephritis, IBS , ovarian cyst Patient had normal negative home test one week ago. I have asked her to repeat this test. Patient does have history of previous ectopic . Do not suspect appendicitis with today's presentation and normal abdominal exam. rx: keflex norco Critical care attestation.: If time is entered above; I have spent that time in minutes in the direct care of this critically ill patient, excluding procedure time. ED Disposition Clinical Impression: Abdominal pain Disposition: DC-01 TO HOME OR SELFCARE Is pt being admited?: No Does the pt Need Aspirin: No Condition: Stable Instructions: Abdominal Pain (ED) Prescriptions: cephALEXin [Keflex] 500 mg PO Q6HR 7 Days #28 capsule HYDROcodone/ACETAMINOPHEN [[place] 5-325 Tablet] 1 each PO Q6H PRN #10 tablet PRN Reason: Pain, Mild (1-3) Referrals: PRIMARY CARE, [Primary Care Provider] - 3-5 Days
== END 2018-04-11 12:30 | disposition home or self-care (01) ==
LOC: ED 10:26
DX: R10.31 Right lower quadrant pain (principal)
CPT/HCPCS: 81001; 81025; 99283

== ENCOUNTER 2018-09-29 01:08 | Emergency (ER) | payer MEDICAID ==
[2018-09-29 01:19] VITALS: BP 143/83
[2018-09-29 02:07] LABS: HCG Qualitative,Urine Negative (Negative)
[2018-09-29 02:26] LABS: Basophils % (Auto) 0.6 % (0.0-1.8); Eosinophils # (Auto) 0.1 K/mm3 (0.0-0.4); Eosinophils % (Auto) 2.2 % (0.0-4.3); Hematocrit 37.7 % (30.3-42.9); Hemoglobin 12.6 gm/dl (10.1-14.3); Lymphocytes # (Auto) 2.4 K/mm3 (1.2-5.4); Lymphocytes % (Auto) 50.9 % (13.4-35.0); Mean Corpuscular HGB Conc 34 % (30-34); Mean Corpuscular Volume 83 fl (79-97); Monocytes # (Auto) 0.3 K/mm3 (0.0-0.8); Monocytes % (Auto) 6.8 % (0.0-7.3); Platelet Count 256 K/mm3 (140-440); Red Blood Count 4.56 M/mm3 (3.65-5.03); Red Cell Distribution Width 15.2 % (13.2-15.2)
[2018-09-29 02:44] LABS: BUN/Creatinine Ratio 8; Blood Urea Nitrogen 6 mg/dL (7-17); Calcium 8.5 mg/dL (8.4-10.2); Hemolysis Index 8
--- NOTE | 2018-09-29 02:46 | XRay Report ---
PROCEDURE: XR CHEST 1V AP TECHNIQUE: A single view of the chest was obtained. HISTORY: Chest Pain COMPARISONS: 01/05/2018 FINDINGS: The heart size and vascularity appear normal. The lungs are clear. The bones and soft tissues appear normal. IMPRESSION: Within normal limits.. This document is electronically signed by Shad Webb MD., September 29 2018 02:43:40 AM ET
== END 2018-09-29 06:00 | disposition home or self-care (01) ==
LOC: ED 01:08
DX: R06.02 Shortness of breath (principal); Z53.21 Procedure and treatment not carried out due to patient leaving prior to being seen by health care provider
CPT/HCPCS: 36415; 71045; 80048; 81025; 84484; 85025; 93005; 93010

== ENCOUNTER 2020-06-16 12:39 | Emergency (ER) | payer OTHER, MEDICAID ==
--- NOTE | 2020-06-16 13:05 | Event Note ---
ED Screening Note Date of service: 06/16/20 Time: 13:04 ED Screening Note: Patient complains of left-sided chest pain intermittently x1 month Denies shortness of breath This initial assessment/diagnostic orders/clinical plan/treatment(s) is/are subject to change based on patients health status, clinical progression and re- assessment by fellow clinical providers in the ED. Further treatment and workup at subsequent clinical providers discretion. Patient/guardian urged not to elope from the ED as their condition may be serious if not clinically assessed and managed. Initial orders include: Labs EKG Chest Xray
--- NOTE | 2020-06-16 13:43 | XRay Report ---
CHEST 2 VIEWS INDICATION / CLINICAL INFORMATION: left sided chest pain. COMPARISON: 09/29/2018 FINDINGS: SUPPORT DEVICES: None. HEART / MEDIASTINUM: No significant abnormality. LUNGS / PLEURA: No significant pulmonary or pleural abnormality. No pneumothorax. ADDITIONAL FINDINGS: No significant additional findings. IMPRESSION: No significant abnormality or interval change from 09/29/2018 Signer Name: Gaurang Middleton MD FACR Signed: 06/16/2020 1:39 PM Workstation Name: [email or web address]
[2020-06-16 14:31] LABS: Basophils % (Auto) 0.7 % (0.0-1.8); Eosinophils % (Auto) 0.5 % (0.0-4.3); Hematocrit 37.6 % (30.3-42.9); Hemoglobin 12.7 gm/dl (10.1-14.3); Lymphocytes # (Auto) 1.7 K/mm3 (1.2-5.4); Lymphocytes % (Auto) 35.4 % (13.4-35.0); Mean Corpuscular HGB Conc 34 % (30-34); Mean Corpuscular Volume 85 fl (79-97); Monocytes # (Auto) 0.4 K/mm3 (0.0-0.8); Monocytes % (Auto) 8.4 % (0.0-7.3); Platelet Count 218 K/mm3 (140-440); Red Blood Count 4.43 M/mm3 (3.65-5.03); Red Cell Distribution Width 15.5 % (13.2-15.2)
--- NOTE | 2020-06-16 14:40 | Emergency Department Report ---
ED General Adult HPI - General Chief complaint: Chest Pain Stated complaint: CHEST PAIN Time Seen by Provider: 06/16/20 13:02 Source: patient Mode of arrival: Ambulatory Limitations: No Limitations - History of Present Illness Initial comments: Is a pleasant 39-year-old female presents the emergency department with a chief complaint of intermittent dull pain under her left breast over the past month. She reports it has become more constant since last night. Pain is worse with certain movements and palpation of the chest wall and mildly alleviated with constant pressure to the chest wall. She denies any pain when she takes a deep breath, exertional shortness of breath or pain, fever, chills, night sweats, headache, dizziness, blurry vision, weakness or any other associated symptoms. She denies any known past medical history, current medication use or known allergies to medications. She does report a family history on her father's side of coronary artery disease but denies any sudden cardiac or early cardiac disease. She denies any tobacco use. She specifically denies any history of hypertension, hyperlipidemia, diabetes or thromboembolic disease. She denies any exogenous estrogen use. - Related Data Previous Rx's Medication Instructions Recorded Last Taken Type Hydrocortisone 2.5% [Hytone 2.5% 1 applicatio TP BID #15 gram 07/15/13 Unknown Rx CREAM] Hermelinda AC/Grape/Hyaluronic Acid 1 applic TP TID #100 gram 07/15/13 Unknown Rx [Atopiclair Cream] Ondansetron [Zofran] 4 mg PO Q6HR PRN #14 tablet 06/27/16 Unknown Rx metroNIDAZOLE [Flagyl] 500 mg PO Q12HR #14 tab 06/27/16 Unknown Rx Oxycodone HCl/Acetaminophen 1 each PO Q6HR PRN #30 tablet 08/24/16 Unknown Rx [Percocet 7.5/325 mg] Vit-Fe Fumar-FA [ 1 each PO QDAY #30 tablet 08/24/16 Unknown Rx Vitamin] levoFLOXacin [Levaquin TAB] 500 mg PO QDAY #10 tablet 08/24/16 Unknown Rx HYDROcodone/ACETAMINOPHEN [[place] 1 each PO Q6H PRN #10 tablet 04/11/18 Unknown Rx 5-325 Tablet] cephALEXin [Keflex] 500 mg PO Q6HR 7 Days #28 capsule 04/11/18 Unknown Rx Ibuprofen [Ibuprofen 800] 800 mg PO TID PRN #30 tablet 09/29/18 Unknown Rx Naproxen [Naprosyn TAB] 500 mg PO BID #30 tablet 06/16/20 Unknown Rx Allergies Allergy/AdvReac Type Severity Reaction Status Date / Time No Known Allergies Allergy Verified 04/11/18 10:47 ED Review of Systems ROS: Stated complaint: CHEST PAIN Other details as noted in HPI Comment: All other systems reviewed and negative Constitutional: denies: chills, fever Eyes: denies: eye pain, eye discharge, vision change ENT: denies: ear pain, throat pain Respiratory: denies: cough, shortness of breath, wheezing Cardiovascular: as per HPI, chest pain. denies: palpitations Endocrine: no symptoms reported Gastrointestinal: denies: abdominal pain, nausea, diarrhea Genitourinary: denies: urgency, dysuria, discharge Musculoskeletal: denies: back pain, joint swelling, arthralgia Skin: denies: rash, lesions Neurological: denies: headache, weakness, paresthesias Psychiatric: denies: anxiety, depression Hematological/Lymphatic: denies: easy bleeding, easy bruising ED Past Medical Hx - Past Medical History Previous Medical History?: No Hx Congestive Heart Failure: No Hx Diabetes: No Hx Asthma: No Hx COPD: No - Surgical History Past Surgical History?: No - Social History Smoking Status: Current Every Day Smoker - Medications Home Medications: Home Medications Medication Instructions Recorded Confirmed Last Taken Type Hydrocortisone 2.5% [Hytone 2.5% 1 applicatio TP BID #15 gram 07/15/13 Unknown Rx CREAM] Hermelinda AC/Grape/Hyaluronic Acid 1 applic TP TID #100 gram 07/15/13 Unknown Rx [Atopiclair Cream] Ondansetron [Zofran] 4 mg PO Q6HR PRN #14 tablet 06/27/16 Unknown Rx metroNIDAZOLE [Flagyl] 500 mg PO Q12HR #14 tab 06/27/16 Unknown Rx Oxycodone HCl/Acetaminophen 1 each PO Q6HR PRN #30 tablet 08/24/16 Unknown Rx [Percocet 7.5/325 mg] Vit-Fe Fumar-FA [ 1 each PO QDAY #30 tablet 08/24/16 Unknown Rx Vitamin] levoFLOXacin [Levaquin TAB] 500 mg PO QDAY #10 tablet 08/24/16 Unknown Rx HYDROcodone/ACETAMINOPHEN [[place] 1 each PO Q6H PRN #10 tablet 04/11/18 Unknown Rx 5-325 Tablet] cephALEXin [Keflex] 500 mg PO Q6HR 7 Days #28 capsule 04/11/18 Unknown Rx Ibuprofen [Ibuprofen 800] 800 mg PO TID PRN #30 tablet 09/29/18 Unknown Rx Naproxen [Naprosyn TAB] 500 mg PO BID #30 tablet 06/16/20 Unknown Rx ED Physical Exam - General Limitations: No Limitations General appearance: alert, in no apparent distress - Head Head exam: Present: atraumatic, normocephalic - Eye Eye exam: Present: normal appearance, PERRL, EOMI Pupils: Present: normal accommodation - ENT ENT exam: Present: normal exam, normal orophraynx, mucous membranes moist - Neck Neck exam: Present: normal inspection, full ROM. Absent: tenderness, meningismus - Respiratory Respiratory exam: Present: normal lung sounds bilaterally, chest wall tenderness (There is tenderness to the chest wall under the left breast, no deformity. No masses). Absent: respiratory distress, wheezes, rales, rhonchi, stridor - Cardiovascular Cardiovascular Exam: Present: regular rate, normal rhythm. Absent: systolic murmur, diastolic murmur, rubs, gallop - GI/Abdominal GI/Abdominal exam: Present: soft, normal bowel sounds, other (Negative negative Aguilar sign, McBurney's point tenderness, no rebound or guarding). Absent: distended, tenderness, guarding, rebound, rigid - Extremities Exam Extremities exam: Present: normal inspection, full ROM, normal capillary refill. Absent: tenderness, calf tenderness (No posterior calf tenderness) - Back Exam Back exam: Present: normal inspection, full ROM. Absent: tenderness, CVA tenderness (R), CVA tenderness (L) - Neurological Exam Neurological exam: Present: alert, oriented X3, normal gait - Psychiatric Psychiatric exam: Present: normal affect, normal mood - Skin Skin exam: Present: warm, dry, intact, normal color. Absent: rash ED Course Vital Signs 06/16/20 06/16/20 12:59 18:52 Temperature 98.2 F Pulse Rate 84 84 Respiratory 18 18 Rate Blood Pressure 140/67 137/80 [Right] O2 Sat by Pulse 98 99 Oximetry ED Medical Decision Making - Lab Data Result diagrams: 06/16/20 14:15 06/16/20 14:15 Lab Results 06/16/20 06/16/20 06/16/20 Range/Units 14:15 14:15 14:15 WBC 4.8 (4.5-11.0) K/mm3 RBC 4.43 (3.65-5.03) M/mm3 Hgb 12.7 (10.1-14.3) gm/dl Hct 37.6 (30.3-42.9) % MCV 85 (79-97) fl MCH 29 (28-32) pg MCHC 34 (30-34) % RDW 15.5 H (13.2-15.2) % Plt Count 218 (140-440) K/mm3 Lymph % (Auto) 35.4 H (13.4-35.0) % [place] % (Auto) 8.4 H (0.0-7.3) % Eos % (Auto) 0.5 (0.0-4.3) % Baso % (Auto) 0.7 (0.0-1.8) % Lymph # (Auto) 1.7 (1.2-5.4) K/mm3 [place] # (Auto) 0.4 (0.0-0.8) K/mm3 Eos # (Auto) 0.0 (0.0-0.4) K/mm3 Baso # (Auto) 0.0 (0.0-0.1) K/mm3 Seg Neutrophils % 55.0 (40.0-70.0) % Seg Neutrophils # 2.6 (1.8-7.7) K/mm3 Sodium 139 (137-145) mmol/L Potassium 4.3 (3.6-5.0) mmol/L Chloride 104.4 (98-107) mmol/L Carbon Dioxide 23 (22-30) mmol/L Anion Gap 16 mmol/L BUN 4 L (7-17) mg/dL Creatinine 0.7 (0.6-1.2) mg/dL Estimated GFR > 60 ml/min BUN/Creatinine Ratio 6 % Glucose 84 (65-100) mg/dL Calcium 8.9 (8.4-10.2) mg/dL Total Bilirubin < 0.20 (0.1-1.2) mg/dL AST 14 (5-40) units/L ALT 13 (7-56) units/L Alkaline Phosphatase 67 (35-129) units/L Troponin T < 0.010 (0.00-0.029) ng/mL Total Protein 7.6 (6.3-8.2) g/dL Albumin 3.9 (3.9-5) g/dL Albumin/Globulin Ratio 1.1 % HCG, Qual Negative (Negative) - EKG Data -: EKG Interpreted by Ct EKG shows normal: sinus rhythm Rate: normal - EKG Data Interpretation: normal EKG (Normal sinus rhythm with a ventricular rate of 73 bpm, no acute ST or T wave abnormalities, normal axis, normal intervals, no acute findings otherwise.) - Radiology Data Radiology results: report reviewed XRay Report Signed Patient: LUCIE BLEDSOE MR#: [id number] : 1980 Acct:[id number] Age/Sex: 39 / F ADM Date: 06/16/20 Loc: ED Attending Dr: Ordering Physician: ARTUR SUMMERS Date of Service: 06/16/20 Procedure(s): XR chest routine 2V Accession Number(s): [id number] cc: ARTUR SUMMERS Fluoro Time In Minutes: CHEST 2 VIEWS INDICATION / CLINICAL INFORMATION: left sided chest pain. COMPARISON: 09/29/2018 FINDINGS: SUPPORT DEVICES: None. HEART / MEDIASTINUM: No significant abnormality. LUNGS / PLEURA: No significant pulmonary or pleural abnormality. No pneum othorax. ADDITIONAL FINDINGS: No significant additional findings. IMPRESSION: No significant abnormality or interval change from 09/29/2018 Signer Name: Gaurang Middleton MD FACR Signed: 06/16/2020 1:39 PM Workstation Name: [id number] Transcribed By: MS Dictated By: Gaurang Middleton MD Electronically Authenticated By: Gaurang Middleton MD Signed Date/Time: 06/16/20 1846 - Medical Decision Making Patient nontoxic in no acute distress. Vital signs are stable. Her heart score is a 1 only secondary to her family history of heart disease. She has no cardiac risk factors otherwise with no tobacco use, no history of hypertension, hyperlipidemia or diabetes. This makes my suspicion for ACS very low at this time. I also considered a pulmonary embolism however the patient has no pleuritic pain, shortness of breath and is PERC negative and has a low Wells risk for PE making this unlikely. Also considered pneumonia however there is no evidence of infiltrate on exam and she has no clinical signs of pneumonia. Also considered pneumothorax or other no clinical symptoms and x-rays not show any evidence of this. Also considered aortic dissection the patient had no tearing or ripping pain into the back, no widening mediastinum on x-ray normal equal radial pulses making this unlikely. I also considered cardiac tamponade however there is no cardiomegaly or muffled heart sounds on exam. Suspect the patient's chest pain is likely in the wall of her chest and will prescribe anti- inflammatories recommend outpatient primary care follow-up return the emerge department any change or worsening symptoms. She verbalized understanding the diagnosis, treatment plan and follow-up instructions and all of her questions were answered. - Differential Diagnosis Chest wall pain, ACS, PE, pneumothorax, pneumonia Critical care attestation.: If time is entered above; I have spent that time in minutes in the direct care of this critically ill patient, excluding procedure time. ED Disposition Clinical Impression: Acute nonspecific chest pain with low risk of coronary artery disease Disposition: DC-01 TO HOME OR SELFCARE Is pt being admited?: No Condition: Stable Instructions: Nonspecific Chest Pain, Adult, Chest Pain (ED) Prescriptions: Naproxen [Naprosyn TAB] 500 mg PO BID #30 tablet Referrals: PRIMARY CARE, [Primary Care Provider] - 3-5 Days Forms: Work/School Release Form(ED) Time of Disposition: 16:08
[2020-06-16 14:58] LABS: Alanine Aminotransferase 13 units/L (7-56); Albumin 3.9 g/dL (3.9-5); Blood Urea Nitrogen 4 mg/dL (7-17); Calcium 8.9 mg/dL (8.4-10.2); Hemolysis Index 9
[2020-06-16 15:07] LABS: BUN/Creatinine Ratio 6
[2020-06-16 18:53] VITALS: BP 137/80
== END 2020-06-16 18:49 | disposition home or self-care (01) ==
LOC: ED 12:39
DX: R07.89 Other chest pain (principal); N64.4 Mastodynia; F17.200 Nicotine dependence, unspecified, uncomplicated; Z79.1 Long term (current) use of non-steroidal anti-inflammatories (NSAID); Z79.899 Other long term (current) drug therapy
CPT/HCPCS: 36415; 71046; 80053; 84484; 84703; 85025; 93005